=== PATIENT | male | born 1935 | race Caucasian/White ===

== ENCOUNTER 2020-07-20 12:11 | Inpatient (IN) ==
[2020-07-20] MEDS ORDERED: IOPAMIDOL 100 ML BOTTLE IV ONE ×2 (12:12→19:39)
[2020-07-20] MEDS ORDERED: ACETAMINOPHEN 325 MG TABLET PO ONE (12:28)
[2020-07-20] MEDS ORDERED: 0.9 % SODIUM CHLORIDE 1,000 ML IV ONE ×2 (12:28→17:05)
--- NOTE | 2020-07-20 13:02 | Emergency Department Note ---
Weakness HPI General Chief complaint: Weakness Stated complaint: weakness Time Seen by Provider: 07/20/20 12:27 Source: patient Mode of arrival: ambulatory Limitations: no limitations History of Present Illness HPI Narrative: This is an 84-year-old male patient who lives independently at home who was found down on the floor by his family this morning. He says his legs just "gave out." He cannot remember if he hit his head, but he denies loss of consciousness. He is with his granddaughter today who feels he is mildly confused. He has an indwelling Albrecht catheter for urinary stricture. This was placed on 07/07/2020 by his urologist via a urethroscope and he was given a dose of IV ceftriaxone and sent home with Keflex. He has a history of false passage x2 from previous emergency room visits, and thus is a difficult Albrecht placement. The patient is a reasonably good historian and states that he experienced weakness this morning with some nausea and rigors. No vomiting. He had a bowel movement this morning that was well formed and moderately sized. No hematochezia or melena. He denies abdominal pain, denies flank pain. He denies hematuria. He denies shortness of breath or chest pain. Denies cough. Denies new visual changes. He does have a history of brain tumor with surgical removal several years ago and consistently has problems with depth perception. He did suffer a bad fall several months ago that was mechanical in nature after he tripped over a garden hose. He is currently denying focal neurological symptoms. He does endorse feeling somewhat disoriented. Related Data Home Medications Medication Instructions Recorded Confirmed atorvastatin 20 mg tablet 20 mg PO QDAY 09/21/19 07/20/20 carvedilol 3.125 mg tablet 6.25 mg PO QDAY tab 09/21/19 07/20/20 Previous Rx's Medication Instructions Recorded tamsulosin 0.4 mg capsule 0.4 mg PO BIDWMEAL #60 cap 07/05/20 finasteride 5 mg tablet 5 mg PO QDAY #30 tab 07/19/20 Allergies Allergy/AdvReac Type Severity Reaction Status Date / Time No Known Drug Allergies Allergy Verified 07/19/20 13:49 Review of Systems ROS ROS Narrative: Narrative: All systems ED: reviewed and negative except as stated. 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) CAD (coronary artery disease) (Chronic) Dermatophytosis (Chronic) Sensorineural hearing loss (Chronic) Auditory hallucinations (Chronic) Cerebral meningioma (Chronic) Dysplastic nevus of skin (Chronic) Abnormal voice (Chronic) Actinic keratosis (Chronic) 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) Elevated PSA (Chronic) Urinary retention (Chronic) Medical History Abnormal voice (Chronic) Actinic keratosis (Chronic) Anxiety (Chronic) 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) CAD (coronary artery disease) (Chronic) Cerebral meningioma (Chronic) Dermatophytosis (Chronic) Dysplastic nevus of skin (Chronic) Elevated PSA (Chronic) Hyperlipidemia (Chronic) Osteoarthritis of multiple joints (Chronic) Sensorineural hearing loss (Chronic) Sensory disorder of smell (Chronic) Urinary retention (Chronic) Surgical History 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) Family History Father Lung cancer Social History Smoking Status: Former smoker Alcohol Intake Frequency: does not drink Exam Narrative Narrative: Narrative: General Limitations: no limitations General appearance: Present alert, in no apparent distress, nontoxic and thin Head Head: Present atraumatic, normocephalic and normal inspection Eye Eye: Present normal appearance, PERRL and EOMI ENT ENT: Present normal exam and normal oropharynx Neck Neck: Present full ROM Respiratory Respiratory: Present normal lung sounds bilaterally Cardiovascular Cardiovascular: Present regular rate, normal rhythm, tachycardia and normal heart sounds Adbominal Abdominal: Present soft and normal bowel sounds; Absent distention and tenderness : Absent testicular tenderness, urethral discharge, scrotal swelling and epididymal tenderness Extremities Extremities: Present normal inspection and normal capillary refill; Absent pedal edema Neurological Neurological: Present alert, oriented X3, CN II-XII intact and motor sensory deficit Expanded Neurological Speech: Present fluid speech Skin Skin: Present warm (WNL), dry and normal color Course Course Course Narrative: 84-year-old male presents with sepsis. Reevaluation(s) Reevaluation #1: 1. Sepsis: Patient is febrile to 101 F with rigors this morning. He is currently tachycardic. Indwelling Albrecht catheter is suspicious for source. He was previously treated with IV ceftriaxone in the office and then home prescription for Keflex on 07/07/2020 by his urologist after a uteroscope with wire catheter for Albrecht placement. He did see NADIA Hess yesterday, and she recommended that the Albrecht catheter remain in place before trying a voiding trial given his history of false passage and difficult Albrecht placement. Unfortunately, guidance was given to the nurse by this provider to remove the Albrecht catheter for clean void catch. Catheter was removed. -RN was able to replace the catheter but currently no urine output. We will send catheter tip and Albrecht bag urine for culture. -We will need to call the urologist on-call Dr. Martínez, for recommendations and likely replacement of Albrecht catheter -Sepsis work-up including blood cultures x2, procalcitonin, CRP, lactic acid -IV fluid bolus and then continuous thereafter -Start broad-spectrum antibiotics, Zoysn for enterococcus coverage Reevaluation #2: Dr. Martínez in to see the patient with successful placement of a cudet catheter Patient is sent for CT C/A/P to look for source CBC with leukocytosis of 13.3 and procalcitonin 5.[address] read of the C/A/P Reevaluation #3: CT C/A/P without clear source of infection. There is some penile gas noted, but suspect this is secondary to false lumen after traumatic Albrecht catheter placement today. Results were called to urology, Dr. Martínez, wh o recommended we continue to watch for signs of Madhu's gangrene with serial penile exams every 2 hours to evaluate for crepitus and erythema. She also warns that although the urine looks clear and is likely colonized, should he have bacteremia source would likely be from his false lumens secondary to trauma. Vital Signs Vital signs: Vital Signs Temperature 101.5 F H 07/20/20 12:13 Pulse Rate 101 H 07/20/20 12:13 Respiratory Rate 18 07/20/20 12:13 Blood Pressure 95/60 07/20/20 12:13 Pulse Oximetry (%) 95 07/20/20 12:13 Temperature 100.5 F H 07/20/20 13:19 Pulse Rate 92 H 07/20/20 17:20 Respiratory Rate 19 07/20/20 17:20 Blood Pressure 120/59 07/20/20 17:20 Pulse Oximetry (%) 94 07/20/20 17:20 MDM MDM Narrative Medical decision making narrative: 1. Sepsis: Meets criteria for inpatient admission given tachycardia, hypo tension, and fever. Procalcitonin is also significantly elevated with a evolving leukocytosis. Source is probably urosepsis as edmonds scanning has revealed no clear source. -Admit inpatient to hospitalist service -Continue Zosyn -Follow-up blood cultures x2 -Follow-up urinary catheter tip cultures -Serial penile exams every 2 hours to evaluate for crepitus and erythema -Please call urology, Dr. Martínez if penile exam concerning for Madhu's gangrene -COVID screen is still pending 2. Weakness with fall: Patient has history of brain tumor and craniotomy. CT of the head shows no acute intracranial pathology. This is likely secondary to sepsis. Lab Data Result diagrams: 07/20/20 12:56 07/20/20 12:56 Labs: Lab Results 07/20/20 07/20/20 07/20/20 Range/Units 12:56 12:56 12:56 WBC 13.3 H (4.5-11.0) K/mcL RBC 3.80 L (4.50-5.90) M/mcL Hgb 12.2 L (13.5-16.5) g/dL Hct 36.2 L (41.0-55.0) % MCV 95.3 (80.0-100.0) fL MCH 32.1 (26.0-34.0) pg MCHC 33.7 (31.0-36.0) g/dL RDW 12.5 (11.5-14.5) % Plt Count 175 (140-440) K/mcL MPV 11.8 H (7.4-10.4) fL Neut % (Auto) 87.7 H (38.0-78.0) % Lymph % (Auto) 2.9 L (15.0-49.0) % [place] % (Auto) 8.9 (1.0-12.0) % Eos % (Auto) 0.3 (0.0-7.0) % Baso % (Auto) 0.2 (0.0-2.0) % Lymph # (Auto) 0.39 L (1.50-4.80) K/mcL [place] # (Auto) 1.18 H (0.10-0.90) K/mcL Eos # (Auto) 0.04 (0.00-0.70) K/mcL Baso # (Auto) 0.02 (0.00-0.20) K/mcL VBG Lactic Acid (0.5-2.0) mmol/L Sodium 137 (133-145) mmol/L Potassium 3.6 (3.3-5.1) mmol/L Chloride 103 (96-108) mmol/L Carbon Dioxide 19 L (22-30) mmol/L Anion Gap 15.0 (8.0-16.0) BUN 22 (8-23) mg/dL Creatinine 1.1 (0.7-1.2) mg/dL POC Creatinine (0.6-1.2) mg/dL GFR Calculation 60 Glucose 84 (70-105) mg/dL Calcium 9.2 (8.6-10.4) mg/dL Total Bilirubin 0.7 (0.1-1.0) mg/dL AST 19 (<40) U/L ALT 11 (<40) U/L Alkaline Phosphatase 62 (39-117) U/L Total Creatine Kinase (24-195) U/L C-Reactive Protein 0.50 (0.03-0.80) mg/dL Total Protein 6.9 (5.9-8.4) gm/dL Albumin 3.6 (3.2-5.2) gm/dL Globulin 3.3 (2.2-3.7) gm/dL Albumin/Globulin Ratio 1.1 (1.0-2.3) Procalcitonin 5.35 H (<0.10) ng/mL Abs Neutrophil Control 11.66 H (1.80-8.00) K/mcL 07/20/20 07/20/20 07/20/20 Range/Units 12:56 12:56 14:30 WBC (4.5-11.0) K/mcL RBC (4.50-5.90) M/mcL Hgb (13.5-16.5) g/dL Hct (41.0-55.0) % MCV (80.0-100.0) fL MCH (26.0-34.0) pg MCHC (31.0-36.0) g/dL RDW (11.5-14.5) % Plt Count (140-440) K/mcL MPV (7.4-10.4) fL Neut % (Auto) (38.0-78.0) % Lymph % (Auto) (15.0-49.0) % [place] % (Auto) (1.0-12.0) % Eos % (Auto) (0.0-7.0) % Baso % (Auto) (0.0-2.0) % Lymph # (Auto) (1.50-4.80) K/mcL [place] # (Auto) (0.10-0.90) K/mcL Eos # (Auto) (0.00-0.70) K/mcL Baso # (Auto) (0.00-0.20) K/mcL VBG Lactic Acid 1.2 (0.5-2.0) mmol/L Sodium (133-145) mmol/L Potassium (3.3-5.1) mmol/L Chloride (96-108) mmol/L Carbon Dioxide (22-30) mmol/L Anion Gap (8.0-16.0) BUN (8-23) mg/dL Creatinine (0.7-1.2) mg/dL POC Creatinine 1.1 (0.6-1.2) mg/dL GFR Calculation Glucose (70-105) mg/dL Calcium (8.6-10.4) mg/dL Total Bilirubin (0.1-1.0) mg/dL AST (<40) U/L ALT (<40) U/L Alkaline Phosphatase (39-117) U/L Total Creatine Kinase 170 (24-195) U/L C-Reactive Protein (0.03-0.80) mg/dL Total Protein (5.9-8.4) gm/dL Albumin (3.2-5.2) gm/dL Globulin (2.2-3.7) gm/dL Albumin/Globulin Ratio (1.0-2.3) Procalcitonin (<0.10) ng/mL Abs Neutrophil Control (1.80-8.00) K/mcL Discharge Plan Patient/Caregiver Discharge Instructions Pt seen by AN/SQQ [id number] SONAR SYSTEM JOURNEYMAN/PA only: Yes Clinical Impression: Sepsis associated hypotension Patient Disposition: Xfer As Inpt ([facility]) Follow up with: Cristino Leal ARNP [Primary Care Provider] - Prescriptions: No Action carvedilol 3.125 mg tablet 6.25 mg PO QDAY RF: 0 atorvastatin 20 mg tablet 20 mg PO QDAY RF: 0 tamsulosin 0.4 mg capsule 0.4 mg PO BIDWMEAL Qty: 60 RF: 6 finasteride 5 mg tablet 5 mg PO QDAY Qty: 30 RF: 3
--- NOTE | 2020-07-20 13:56 | Cat Scan Report ---
History: Fell with increased confusion and weakness, prior resection of a brain tumor TECHNIQUE: The brain was imaged without contrast at 2.5 mm intervals. Sagittal and coronal reformats were created. The radiation exposure was limited using dose reduction technology. FINDINGS: There is a craniotomy defect in the left occipital bone. There is mesh at the operative site. Beneath the calvarial defect there is a zone of encephalomalacia along the lateral aspect of the left cerebellum. No skull fracture is present. There is no intracranial hemorrhage, cerebral edema or evidence of an acute infarct. Age-related degenerative changes are present with generalized cerebral atrophy and mild dilatation of the lateral and third ventricles. No abnormal extra-axial fluid collection is present. There is moderate amount calcified plaque in the cavernous portions of both internal carotids and moderate involvement in the right vertebral artery. No prior study is available for comparison. IMPRESSION: Postsurgical defect in the left cerebellar hemisphere No skull fracture or evidence of acute brain injury Vonda Delgadillo was called with the results Interpreted and Authenticated by: Cristino Calderon 07/20/20
[2020-07-20] MEDS ORDERED: PIPERACILLIN SODIUM/TAZOBACTAM 3.375 GM in DEXTROSE 5% IN WATER 50 ML IV SCH ×2 (14:00→18:45)
--- NOTE | 2020-07-20 14:04 | XRay Report ---
HISTORY: Sepsis FINDINGS: Small band of scar or discoid atelectasis is present at the left costophrenic sulcus. The lungs are otherwise clear and well expanded without evidence of pneumonia. There is no pleural effusion or adenopathy. The heart size is normal. There has been prior coronary bypass surgery. A moderate wedge compression fracture is present in the midthoracic spine. This appears old. IMPRESSION: No acute abnormality Interpreted and Authenticated by: Cristino Calderon 07/20/20
[2020-07-20 14:31] LABS: ALT/SGPT 11 U/L (<40); AST/SGOT 19 U/L (<40); Albumin 3.6 gm/dL (3.2-5.2); Albumin/Globulin Ratio 1.1 (1.0-2.3); Alkaline Phosphatase 62 U/L (39-117); Bilirubin,Total 0.7 mg/dL (0.1-1.0); Blood Urea Nitrogen 22 mg/dL (8-23); Calcium 9.2 mg/dL (8.6-10.4); Carbon Dioxide 19 mmol/L (22-30); Chloride 103 mmol/L (96-108); Globulin 3.3 gm/dL (2.2-3.7); Glomerular Filtration Rate 60; Glucose 84 mg/dL (70-105)
[2020-07-20 14:32] LABS: Creatine Kinase 170 U/L (24-195)
[2020-07-20 14:40] LABS: POC Creatinine 1.1 mg/dL (0.6-1.2)
[2020-07-20 14:43] LABS: Basophils # (Auto) 0.02 K/mcL (0.00-0.20); Basophils % (Auto) 0.2 % (0.0-2.0); Eosinophils # (Auto) 0.04 K/mcL (0.00-0.70); Eosinophils % (Auto) 0.3 % (0.0-7.0); Hematocrit 36.2 % (41.0-55.0); Hemoglobin 12.2 g/dL (13.5-16.5); Lymphocytes # (Auto) 0.39 K/mcL (1.50-4.80); Lymphocytes % (Auto) 2.9 % (15.0-49.0); Mean Cell Volume 95.3 fL (80.0-100.0); Mean Corpuscular HGB Conc 33.7 g/dL (31.0-36.0); Mean Platelet Volume 11.8 fL (7.4-10.4); Monocytes # (Auto) 1.18 K/mcL (0.10-0.90); Monocytes % (Auto) 8.9 % (1.0-12.0); Neutrophils % (Auto) 87.7 % (38.0-78.0); Platelet Count 175 K/mcL (140-440); Red Cell Distribution Width 12.5 % (11.5-14.5); WBC 13.3 K/mcL (4.5-11.0)
--- NOTE | 2020-07-20 16:31 | Cat Scan Report ---
History: Sepsis, cellulitis in the legs TECHNIQUE: Following injection of intravenous nonionic contrast the patient was scanned from the thoracic inlet to the tibial plateaus. Sagittal and coronal reformats were created of the chest abdomen pelvis and thighs. The radiation exposure was limited using dose reduction technology. FINDINGS: CHEST: There are several linear bands of scar or discoid atelectasis in the left lower lobe. There is no evidence of pneumonia or pulmonary mass. No pleural effusion or enlarged lymph nodes are present. There are postoperative changes following prior sternotomy and coronary bypass surgery. Heart size is normal. Large amount calcified plaque is present in the left main and left anterior descending coronary. No pleural or pericardial effusion present. Abdomen and pelvis: The liver and spleen are normal in size and homogeneous. The gallbladder and bile ducts are normal. There is no mass or inflammation the pancreas. The adrenals and kidneys are normal. There is no evidence of kidney stone hydronephrosis or inflammation in or around either kidney. The ureters are decompressed. There are several noninflamed diverticula in the distal descending and sigmoid colon. There is no evidence of acute diverticulitis. The appendix is noninflamed. Small intestine is nondilated. Stomach is decompressed. No abscess, mass, ascites or adenopathy are present within the abdomen or pelvis. Prostate is markedly enlarged and lifts the bladder from the floor the pelvis. The bladder is decompressed by Albrecht catheter. There is gas in the bladder which is probably related to the insertion of the Albrecht and less likely due to infection. Seminal vesicles are normal in size. Severe atherosclerotic disease is present throughout the aorta and iliac arteries. There is moderate stenosis at the origin of the celiac artery. Superior mesenteric artery is normal. Moderate stenoses are present at the origins of both renal arteries. Scattered plaques along all the internal and external carotid arteries without hemodynamically significant stenosis. Thighs:: There is a moderate amount of plaque in the common femoral arteries bilaterally and multiple scattered plaques are present in the superficial femoral artery and profunda down through the level of the popliteal arteries. These are not causing hemodynamically significant stenoses. There is no evidence of an abscess or edema in either thigh. No abnormal fluid collection is present. The thigh and pelvic muscles appear normal and symmetric. IMPRESSION: No evidence of abscess. The source of sepsis is not identified. Diverticulosis but without acute diverticulitis. Enlarged prostate which is probably due to benign prostatic hypertrophy. Underlying tumor cannot be excluded. Scar versus discoid atelectasis in the left lower lobe Advanced atherosclerotic disease in the chest abdomen pelvis Vonda Delgadillo was called with the results Interpreted and Authenticated by: Cristino Calderon 07/20/20
[2020-07-20] MEDS ORDERED: TAMSULOSIN 0.4 MG CAPSULE PO SCH (17:30)
[2020-07-20] MEDS ORDERED: 0.9 % SODIUM CHLORIDE 1,000 ML IV SCH (18:45)
[2020-07-20] MEDS ORDERED: ONDANSETRON 4 MG/2 ML VIAL IV PRN ×2 (18:45→19:39)
[2020-07-20] MEDS ORDERED: oxyCODONE/APAP 5/325MG TABLET PO PRN (18:45)
[2020-07-20] MEDS ORDERED: SENNOSIDES 1 TABLET PO PRN (18:45)
[2020-07-20] MEDS ORDERED: morphine 2 MG/ML VIAL IV PRN ×2 (18:45→19:39)
--- NOTE | 2020-07-20 19:04 | Internal Med History&Physical ---
HPI History of Present Illness Patient information: Note initiated : 07/20/20 at 7:00 pm Service Date, if different from initiated Date: [] Patient: Gregg Davis a 84 y/o M admitted on for weakness. Chief Complaint: [] History of present illness: Mr. Davis is a 84 year old M with a past medical history of BPH, CAD, and urethral stricture who was brought to the ER due to fall at home. This morning patient was found to be on the ground by family. As per patient, his legs just "gave out.". He did not lose consciousness or hit his head. He also has nausea and chills today. His grandson found him to have mild confusion today. He has a urethral stricture, for which Moreno catheter was placed on 07/07/2020 by his urologist via a urethroscope. He was discharged to home with oral Keflex after 1 dose of IV ceftriaxone was given. Yesterday he went to see NADIA Hess who removed his Moreno catheter. In the ER, Moreno catheter was not able to be inserted. Urologist Dr. Martínez successfully placed a moreno cath. CT head was negative for acute change. CT chest abdomen pelvis and upper thighs no significant pathology. But it did show There was some penile gas noted, but suspect this is secondary to false lumen after traumatic Moreno catheter placement today. When I saw this patient in the ER, other than the symptoms mentioned above, he denied headache, dizziness, chest pain, abdominal pain, shortness of breath, or dysuria. 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) Elevated PSA (Chronic) Urinary retention (Chronic) Medical History Abnormal voice (Chronic) Actinic keratosis (Chronic) Anxiety (Chronic) 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) CAD (coronary artery disease) (Chronic) Cerebral meningioma (Chronic) Dermatophytosis (Chronic) Dysplastic nevus of skin (Chronic) Elevated PSA (Chronic) Hyperlipidemia (Chronic) Osteoarthritis of multiple joints (Chronic) Sensorineural hearing loss (Chronic) Sensory disorder of smell (Chronic) Urinary retention (Chronic) Surgical History 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) Family History Father Lung cancer Social History smoking status: Former smoker alcohol intake frequency: does not drink MEDS/ALLERGIES Home Medications and Allergies Home Medications Medication Instructions Recorded Confirmed Type atorvastatin 20 mg tablet 20 mg PO QDAY 09/21/19 07/20/20 History carvedilol 3.125 mg tablet 6.25 mg PO QDAY tab 09/21/19 07/20/20 History tamsulosin 0.4 mg capsule 0.4 mg PO BIDWMEAL #60 cap 07/05/20 07/20/20 Rx finasteride 5 mg tablet 5 mg PO QDAY #30 tab 07/19/20 07/20/20 Rx Allergies Allergy/AdvReac Type Severity Reaction Status Date / Time No Known Drug Allergies Allergy Verified 07/19/20 13:49 EXAM Constitutional Vitals: Temp Pulse Resp BP Pulse Ox 100.5 F H 85 23 H 111/79 96 07/20/20 13:19 07/20/20 18:28 07/20/20 17:45 07/20/20 18:28 07/20/20 18:28 Additional findings Additional findings: General - No acute distress Eyes - PERRLA, EOM intact ENT no rhinorrhea, no noticeable or palpable swelling, no redness or rash around throat or on face Neck supple, no JVD, no thyromegaly Respiratory: Lungs - diminshed BS, no use of accessary muscles. Cardiovascular - RRR no m/r/g, GI - Normal bowel sounds, no distended, soft. Extremeties - No edema, cyanosis or clubbing. No CVA tenderness. Hemo/lymphatic/immune no lymphadenopathy Neurological Alert and oriented x 3, no focal neurological deficits. Psychiatry flat affect DATA Data Completed and Pending Labs: Labs from last 24 hours 07/20/20 07/20/20 07/20/20 14:30 13:50 12:56 WBC RBC Hgb Hct MCV MCH MCHC RDW Plt Count MPV Neut % (Auto) Lymph % (Auto) Barron % (Auto) Eos % (Auto) Baso % (Auto) Lymph # (Auto) Barron # (Auto) Eos # (Auto) Baso # (Auto) VBG Lactic Acid Sodium Potassium Chloride Carbon Dioxide Anion Gap BUN Creatinine POC Creatinine 1.1 GFR Calculation Glucose Calcium Total Bilirubin AST ALT Alkaline Phosphatase Total Creatine Kinase 170 C-Reactive Protein Total Protein Albumin Globulin Albumin/Globulin Ratio Procalcitonin Urine Color Pending Urine Appearance Pending Urine pH Pending Ur Specific [place] Pending Urine Protein Pending Urine Glucose (UA) Pending Urine Ketones Pending Urine Occult Blood Pending Urine Nitrate Pending Urine Bilirubin Pending Urine Urobilinogen Pending Ur Leukocyte Esterase Pending Abs Neutrophil Control 07/20/20 07/20/20 07/20/20 12:56 12:56 12:56 WBC RBC Hgb Hct MCV MCH MCHC RDW Plt Count MPV Neut % (Auto) Lymph % (Auto) Barron % (Auto) Eos % (Auto) Baso % (Auto) Lymph # (Auto) Barron # (Auto) Eos # (Auto) Baso # (Auto) VBG Lactic Acid 1.2 Sodium 137 Potassium 3.6 Chloride 103 Carbon Dioxide 19 L Anion Gap 15.0 BUN 22 Creatinine 1.1 POC Creatinine GFR Calculation 60 Glucose 84 Calcium 9.2 Total Bilirubin 0.7 AST 19 ALT 11 Alkaline Phosphatase 62 Total Creatine Kinase C-Reactive Protein 0.50 Total Protein 6.9 Albumin 3.6 Globulin 3.3 Albumin/Globulin Ratio 1.1 Procalcitonin 5.35 H Urine Color Urine Appearance Urine pH Ur Specific [place] Urine Protein Urine Glucose (UA) Urine Ketones Urine Occult Blood Urine Nitrate Urine Bilirubin Urine Urobilinogen Ur Leukocyte Esterase Abs Neutrophil Control 07/20/20 12:56 WBC 13.3 H RBC 3.80 L Hgb 12.2 L Hct 36.2 L MCV 95.3 MCH 32.1 MCHC 33.7 RDW 12.5 Plt Count 175 MPV 11.8 H Neut % (Auto) 87.7 H Lymph % (Auto) 2.9 L Barron % (Auto) 8.9 Eos % (Auto) 0.3 Baso % (Auto) 0.2 Lymph # (Auto) 0.39 L Barron # (Auto) 1.18 H Eos # (Auto) 0.04 Baso # (Auto) 0.02 VBG Lactic Acid Sodium Potassium Chloride Carbon Dioxide Anion Gap BUN Creatinine POC Creatinine GFR Calculation Glucose Calcium Total Bilirubin AST ALT Alkaline Phosphatase Total Creatine Kinase C-Reactive Protein Total Protein Albumin Globulin Albumin/Globulin Ratio Procalcitonin Urine Color Urine Appearance Urine pH Ur Specific [place] Urine Protein Urine Glucose (UA) Urine Ketones Urine Occult Blood Urine Nitrate Urine Bilirubin Urine Urobilinogen Ur Leukocyte Esterase Abs Neutrophil Control 11.66 H A/P Narrative A/P Narrative: 1. AMS Etiology unknown. Could be due to sepsis. CT of the head negative for acute change Monitor 2. Sepsis, source of infection unknown, could be due to bacteremia 3. Bacteremia? 2L normal saline was given in the ER continue IV fluid Procalcitonin 5.35, lactic acid 1.2 COVID-19 screen negative He was suspected to have bacteremia from false passage Blood culture Urine culture Zosyn 4. Urinary retention 5. Hx of urethral stricture 6. Uretharal false passage 7. BPH CT chest, abd, pelvis, and thigh no significant pathology. Managed by urologist Dr. Martínez. With a really appreciate it. Moreno catheter was replaced by Dr. Martínez in the ER Hx of false passage x [address] Martínez, -moreno catheter to remain in place for 3 weeks -to see Dr. Martínez in three weeks for cystoscopy and trial of void in clinic -do not remove catheter without discussion with urology 8. CAD, s/p CABG Continue Lipitor 9. Madhu's gangrene, penis? CT showed there was some penile gas noted, but suspect this is secondary to false lumen after traumatic Moreno catheter placement today. Continue to watch for signs of Madhu's gangrene with serial penile exams every 2 hours to evaluate for crepitus and erythema. 10. Mechanical ground level fall CK PT/OT/CM 11. DVT prophylaxis: Lovenox 12. 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
[2020-07-20] MEDS: 0.9 % SODIUM CHLORIDE 1,000 ML IV SCH (20:15)
[2020-07-20] MEDS: 0.9 % SODIUM CHLORIDE 10 ML SYRINGE IV SCH (20:20)
[2020-07-20 20:53] LABS: Phosphorous 3.2 mg/dL (2.5-4.5)
[2020-07-20 20:54] LABS: Creatine Kinase 125 U/L (24-195)
[2020-07-20] MEDS: TAMSULOSIN 0.4 MG CAPSULE PO SCH (21:00)
[2020-07-20] MEDS ORDERED: DOCUSATE SODIUM 100 MG CAPSULE PO SCH (21:00)
[2020-07-20] MEDS: DOCUSATE SODIUM 100 MG CAPSULE PO SCH (21:01)
[2020-07-20] MEDS ORDERED: 0.9 % SODIUM CHLORIDE 10 ML SYRINGE IV SCH (22:00)
[2020-07-21] MEDS: PIPERACILLIN SODIUM/TAZOBACTAM 3.375 GM in DEXTROSE 5% IN WATER 50 ML IV SCH ×4 (00:11→17:06)
[2020-07-21] MEDS: 0.9 % SODIUM CHLORIDE 10 ML SYRINGE IV SCH ×3 (06:28→23:56)
[2020-07-21 06:39] LABS: Basophils # (Auto) 0.04 K/mcL (0.00-0.20); Basophils % (Auto) 0.3 % (0.0-2.0); Eosinophils # (Auto) 0.01 K/mcL (0.00-0.70); Eosinophils % (Auto) 0.1 % (0.0-7.0); Hematocrit 32.6 % (41.0-55.0); Hemoglobin 10.8 g/dL (13.5-16.5); Lymphocytes # (Auto) 1.03 K/mcL (1.50-4.80); Lymphocytes % (Auto) 6.8 % (15.0-49.0); Mean Cell Volume 95.6 fL (80.0-100.0); Mean Corpuscular HGB Conc 33.1 g/dL (31.0-36.0); Mean Platelet Volume 11.7 fL (7.4-10.4); Monocytes # (Auto) 1.24 K/mcL (0.10-0.90); Monocytes % (Auto) 8.1 % (1.0-12.0); Neutrophils % (Auto) 84.7 % (38.0-78.0); Platelet Count 141 K/mcL (140-440); RBC 3.41 M/mcL (4.50-5.90); Red Cell Distribution Width 12.9 % (11.5-14.5); WBC 15.2 K/mcL (4.5-11.0)
[2020-07-21] MEDS ORDERED: NOREPINEPHRINE BITARTRATE 8 MG in 0.9 % SODIUM CHLORIDE 242 ML IV SCH (07:30)
[2020-07-21] MEDS: TAMSULOSIN 0.4 MG CAPSULE PO SCH ×2 (08:10→17:11)
[2020-07-21] MEDS: 0.9 % SODIUM CHLORIDE 250 ML IV SCH ×2 (08:42→23:06)
[2020-07-21] MEDS ORDERED: FINASTERIDE 5 MG TABLET PO SCH (09:00)
[2020-07-21] MEDS ORDERED: ATORVASTATIN 20 MG TABLET PO SCH (09:00)
[2020-07-21] MEDS ORDERED: ENOXAPARIN 40 MG/0.4 ML SYRINGE SQ SCH (09:00)
[2020-07-21] MEDS: FINASTERIDE 5 MG TABLET PO SCH (09:12)
[2020-07-21] MEDS: DOCUSATE SODIUM 100 MG CAPSULE PO SCH ×2 (09:13→21:02)
[2020-07-21] MEDS: ENOXAPARIN 40 MG/0.4 ML SYRINGE SQ SCH (09:13)
[2020-07-21] MEDS: 0.9 % SODIUM CHLORIDE 1,000 ML IV SCH ×2 (09:13→22:40)
[2020-07-21] MEDS: ATORVASTATIN 20 MG TABLET PO SCH (09:13)
[2020-07-21] MEDS ORDERED: NOREPINEPHRINE BITARTRATE 8 MG in 0.9 % SODIUM CHLORIDE 242 ML IV PRN (09:15)
[2020-07-21 11:19] LABS: ALT/SGPT 10 U/L (<40); AST/SGOT 17 U/L (<40); Albumin 3.1 gm/dL (3.2-5.2); Albumin/Globulin Ratio 1.1 (1.0-2.3); Alkaline Phosphatase 54 U/L (39-117); Bilirubin,Total 0.5 mg/dL (0.1-1.0); Blood Urea Nitrogen 23 mg/dL (8-23); Calcium 8.9 mg/dL (8.6-10.4); Carbon Dioxide 19 mmol/L (22-30); Chloride 110 mmol/L (96-108); Globulin 2.7 gm/dL (2.2-3.7); Glomerular Filtration Rate 60; Glucose 84 mg/dL (70-105)
[2020-07-21] MEDS ORDERED: oxyCODONE/APAP 5/325MG TABLET PO PRN (21:28)
--- NOTE | 2020-07-21 21:53 | Internal Med Progress Note ---
SUBJECTIVE Subjective Patient information: Note initiated : 07/21/20 at 9:50 pm Service Date, if different from initiated Date: [] Patient: Gregg Davis a 84 y/o M admitted on 07/20/20 for weakness. Chief Complaint: [] Mr. Davis is a 84 year old M with a past medical history of BPH, CAD, and ureth ral stricture who was brought to the ER due to fall at home. This morning patient was found to be on the ground by family. As per patient, his legs just "gave out.". He did not lose consciousness or hit his head. He also has nausea and chills today. His grandson found him to have mild confusion today. He has a urethral stricture, for which Moreno catheter was placed on 07/07/2020 by his urologist via a urethroscope. He was discharged to home with oral Keflex after 1 dose of IV ceftriaxone was given. Yesterday he went to see NADIA Hess who removed his Moreno catheter. In the ER, Moreno catheter was not able to be inserted. Urologist Dr. Martínez successfully placed a moreno cath. CT head was negative for acute change. CT chest abdomen pelvis and upper thighs no significant pathology. But it did show There was some penile gas noted, but suspect this is secondary to false lumen after traumatic Moreno catheter placement today. When I saw this patient in the ER, other than the symptoms mentioned above, he denied headache, dizziness, chest pain, abdominal pain, shortness of breath, or dysuria. 09/20 Patient feels much better. Mental status improving -answer questions appro priately. Patient has mild fever this evening White blood cells of 15.2 Hemoglobin 10.8 COVID-19 negative Urine culture pending Review of Systems All systems: reviewed and no additional remarkable complaints except as stated Constitutional Vitals: Vital Signs Temp Pulse Resp BP Pulse Ox 101.4 F H 93 H 20 129/77 93 07/21/20 21:03 07/21/20 16:00 07/21/20 16:00 07/21/20 16:00 07/21/20 16:00 Period Temp Pulse Resp BP Sys/Hernandez Pulse Ox Last 24 Hr 98.2 F-101.4 F 75-93 9-20 87-129/52-77 93-99 Intake and Output 1007/21/20 07/21/20 05:59 13:59 21:59 Intake Total 50 1673 Output Total 650 200 750 Balance -600 1473 -750 Weight 81.828 kg Patient Weight 07/22/20 05:59 Weight 81.828 kg Intake & Output: Intake & Output 07/21/20 07/21/20 07/21/20 05:59 13:59 21:59 Intake Total 50 1673 Output Total 650 200 750 Balance -600 1473 -750 Weight 81.828 kg Intake: IV 50 1073 Sodium Chloride 0.9% 1,000 ml @ 973 75 mls/hr IV .[id number] Rx#: [id number] Zosyn 3.375 gm In Dextrose 5% 50 100 in Water 50 ml @ 100 mls/hr IV Q6H [facility] Rx#:[id number] Oral 600 Output: Urine Catheter Amount 650 200 750 Other: Meal Breakfast Percent of Meal Consumed 100% Feeding Ability Independent Urine Appearance Cloudy Cloudy Cloudy Urine Color Dark Yellow Straw Dark Yellow Urine Odor Normal Normal Stool Size Moderate Stool Color Brown Pale Stool Consistency Soft Formed Additional findings Additional findings: General - No acute distress Eyes - PERRLA, EOM intact ENT no rhinorrhea, no noticeable or palpable swelling, no redness or rash around throat or on face Neck supple, no JVD, no thyromegaly Respiratory: Lungs - diminshed BS, no use of accessary muscles. Cardiovascular - RRR no m/r/g, GI - Normal bowel sounds, no distended, soft. Extremeties - No edema, cyanosis or clubbing. No CVA tenderness. Penis no erythema, edema or tenderness. Hemo/lymphatic/immune no lymphadenopathy Neurological Alert and oriented x 3, no focal neurological deficits. Psychiatry flat affect OBJ DATA Labs CBC & Chem 7: 07/21/20 04:56 07/21/20 04:56 Labs: Abnormal Lab Results 07/21/20 07/21/20 07/20/20 04:56 04:56 19:27 WBC 15.2 H RBC 3.41 L Hgb 10.8 L Hct 32.6 L MPV 11.7 H Neut % (Auto) 84.7 H Lymph % (Auto) 6.8 L Lymph # (Auto) 1.03 L Kent # (Auto) 1.24 H Chloride 110 H Carbon Dioxide 19 L NT-Pro-B Natriuret Pep 1229.0 H Total Protein 5.8 L Albumin 3.1 L Procalcitonin Abs Neutrophil Control 12.91 H 07/20/20 07/20/20 07/20/20 12:56 12:56 12:56 WBC 13.3 H RBC 3.80 L Hgb 12.2 L Hct 36.2 L MPV 11.8 H Neut % (Auto) 87.7 H Lymph % (Auto) 2.9 L Lymph # (Auto) 0.39 L Kent # (Auto) 1.18 H Chloride Carbon Dioxide 19 L NT-Pro-B Natriuret Pep Total Protein Albumin Procalcitonin 5.35 H Abs Neutrophil Control 11.66 H Meds: Medications Acetaminophen (Tylenol) 500 mg PO Q6HP PRN; Protocol PRN Reason: Fever Atorvastatin Calcium (Lipitor) 20 mg PO QDAY [facility] Last Admin: 07/21/20 09:13 Dose: 20 mg Documented by: Docusate Sodium (Colace) 100 mg PO BID [facility] Last Admin: 07/21/20 21:02 Dose: 100 mg Documented by: Enoxaparin Sodium (Lovenox) 40 mg SQ DAILY [facility] Last Admin: 07/21/20 09:13 Dose: 40 mg Documented by: Finasteride (Proscar) 5 mg PO QDAY [facility] Last Admin: 07/21/20 09:12 Dose: 5 mg Documented by: Sodium Chloride (Sodium Chloride 0.9%) 1,000 mls @ 75 mls/hr IV .[id number] [facility] Last Admin: 07/21/20 09:13 Dose: 75 mls/hr Documented by: Piperacillin Sod/Tazobactam (Sod 3.375 gm/ Dextrose) 50 mls @ 100 mls/hr IV Q6H [facility]; Protocol Last Admin: 07/21/20 17:06 Dose: 100 mls/hr Documented by: Sodium Chloride (Sodium Chloride 0.9%) 250 mls @ 20 mls/hr IV .[id number] [facility] Last Admin: 07/21/20 08:42 Dose: Not Given Documented by: Norepinephrine Bitartrate 8 mg (/ Sodium Chloride) 250 mls @ 18.75 mls/hr IV Q14H PRN; Protocol PRN Reason: TITRATE TO KEEP MAP > 65 Morphine Sulfate (Morphine) 2 mg IV Q6HP PRN PRN Reason: Chest Pain Ondansetron HCl (Zofran) 4 mg IV Q4HP PRN; Protocol PRN Reason: Nausea And Vomiting Oxycodone/Acetaminophen (Percocet 5-325 Mg) 1 tab PO Q6H PRN; Protocol PRN Reason: Per Pain Protocol Sodium Chloride (Saline Flush) 10 ml IV Q8 [facility] Last Admin: 07/21/20 12:59 Dose: Not Given Documented by: Tamsulosin HCl (Flomax) 0.4 mg PO BIDCC [facility] Last Admin: 07/21/20 17:11 Dose: 0.4 mg Documented by: A/P Narrative A/P Narrative: 1. AMS improving/almost resolved Etiology unknown. Could be due to sepsis. CT of the head negative for acute change Monitor 2. Sepsis, source of infection unknown, could be due to bacteremia 3. Bacteremia? 2L normal saline was given in the ER continue IV fluid Procalcitonin 5.35, lactic acid 1.2 COVID-19 screen negative He was suspected to have bacteremia from false passage Blood culture pending Urine culture pending Zosyn 4. Urinary retention 5. Hx of urethral stricture 6. Uretharal false passage 7. BPH CT chest, abd, pelvis, and thigh no significant pathology. Managed by urologist Dr. Martínez. With a really appreciate it. Moreno catheter was replaced by Dr. Martínez in the ER Hx of false passage x [address] Martínez, -moreno catheter to remain in place for 3 weeks -to see Dr. Martínez in three weeks for cystoscopy and trial of void in clinic -do not remove catheter without discussion with urology 8. CAD, s/p CABG Continue Lipitor 9. Madhu's gangrene, penis? CT showed there was some penile gas noted, but suspect this is secondary to false lumen after traumatic Moreno catheter placement today. Continue to watch for signs of Madhu's gangrene with serial penile exams e very 2 hours to evaluate for crepitus and erythema. 10. Mechanical ground level fall CK - 125 PT/OT/CM 11. DVT prophylaxis: Lovenox 12. 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
[2020-07-21] MEDS: ACETAMINOPHEN 500 MG TABLET PO PRN (21:54)
[2020-07-22] MEDS: PIPERACILLIN SODIUM/TAZOBACTAM 3.375 GM in DEXTROSE 5% IN WATER 50 ML IV SCH ×5 (00:16→17:24)
[2020-07-22] MEDS: 0.9 % SODIUM CHLORIDE 250 ML IV SCH (06:38)
[2020-07-22 06:39] LABS: Basophils # (Auto) 0.03 K/mcL (0.00-0.20); Basophils % (Auto) 0.3 % (0.0-2.0); Eosinophils # (Auto) 0.01 K/mcL (0.00-0.70); Eosinophils % (Auto) 0.1 % (0.0-7.0); Hematocrit 33.7 % (41.0-55.0); Hemoglobin 11.2 g/dL (13.5-16.5); Lymphocytes # (Auto) 0.45 K/mcL (1.50-4.80); Lymphocytes % (Auto) 4.6 % (15.0-49.0); Mean Cell Volume 95.5 fL (80.0-100.0); Mean Corpuscular HGB Conc 33.2 g/dL (31.0-36.0); Mean Platelet Volume 11.5 fL (7.4-10.4); Monocytes # (Auto) 0.64 K/mcL (0.10-0.90); Monocytes % (Auto) 6.5 % (1.0-12.0); Neutrophils % (Auto) 88.5 % (38.0-78.0); Platelet Count 118 K/mcL (140-440); RBC 3.53 M/mcL (4.50-5.90); Red Cell Distribution Width 12.9 % (11.5-14.5); WBC 9.8 K/mcL (4.5-11.0)
[2020-07-22] MEDS: 0.9 % SODIUM CHLORIDE 10 ML SYRINGE IV SCH ×3 (06:44→22:57)
[2020-07-22] MEDS: TAMSULOSIN 0.4 MG CAPSULE PO SCH ×2 (07:28→17:25)
[2020-07-22 08:22] LABS: ALT/SGPT 9 U/L (<40); AST/SGOT 16 U/L (<40); Albumin/Globulin Ratio 1.1 (1.0-2.3); Alkaline Phosphatase 57 U/L (39-117); Bilirubin,Total 0.5 mg/dL (0.1-1.0); Blood Urea Nitrogen 15 mg/dL (8-23); Calcium 8.6 mg/dL (8.6-10.4); Carbon Dioxide 19 mmol/L (22-30); Chloride 110 mmol/L (96-108); Globulin 2.8 gm/dL (2.2-3.7); Glomerular Filtration Rate 60; Glucose 90 mg/dL (70-105)
[2020-07-22] MEDS: FINASTERIDE 5 MG TABLET PO SCH (09:07)
[2020-07-22] MEDS: DOCUSATE SODIUM 100 MG CAPSULE PO SCH ×2 (09:07→20:45)
[2020-07-22] MEDS: ENOXAPARIN 40 MG/0.4 ML SYRINGE SQ SCH (09:07)
[2020-07-22] MEDS: ATORVASTATIN 20 MG TABLET PO SCH (09:08)
[2020-07-22] MEDS: ACETAMINOPHEN 500 MG TABLET PO PRN (10:31)
--- NOTE | 2020-07-22 10:38 | Internal Med Progress Note ---
SUBJECTIVE Subjective Patient information: Note initiated : 07/22/20 at 10:34 am Service Date, if different from initiated Date: [] Patient: Gregg Davis a 84 y/o M admitted on 07/20/20 for weakness. Chief Complaint: [] Mr. Davis is a 84 year old M with a past medical history of BPH, CAD, and ure thral stricture who was brought to the ER due to fall at home. This morning patient was found to be on the ground by family. As per patient, his legs just "gave out.". He did not lose consciousness or hit his head. He also has nausea and chills today. His grandson found him to have mild confusion today. He has a urethral stricture, for which Moreno catheter was placed on 07/07/2020 by his urologist via a urethroscope. He was discharged to home with oral Keflex after 1 dose of IV ceftriaxone was given. Yesterday he went to see NADIA Hess who removed his Moreno catheter. In the ER, Moreno catheter was not able to be inserted. Urologist Dr. Martínez successfully placed a moreno cath. CT head was negative for acute change. CT chest abdomen pelvis and upper thighs no significant pathology. But it did show There was some penile gas noted, but suspect this is secondary to false lumen after traumatic Moreno catheter placement today. When I saw this patient in the ER, other than the symptoms mentioned above, he denied headache, dizziness, chest pain, abdominal pain, shortness of breath, or dysuria. 09/20 Patient feels much better. Mental status improving -answer questions melissa ropriately. Patient has mild fever this evening White blood cells of 15.2 Hemoglobin 10.8 COVID-19 negative Urine culture pending 07/22 Pt is more lethargic today. Does not follow commends. Pt still has fever. Urine culture showed GNB. Sensitivity pending Accucheck blood glucose 100 CT of head -no acute change ABG, Lactic acid, procalcitonin, blood culture CT abd/pelvis to r/o intraabd/pel infection/abscess -no abscess pulse ox oxygen ABG showed 7.53/24/58/92.8/20.1. Oxygen therapy was started. Patient mental status rapidly improved after oxygen therapy was started. Review of Systems All systems: reviewed and no additional remarkable complaints except as stated Constitutional Vitals: Vital Signs Temp Pulse Resp BP Pulse Ox 99.3 F H 109 H 20 138/68 95 07/22/20 08:00 07/22/20 08:00 07/22/20 10:00 07/22/20 10:00 07/22/20 10:00 Period Temp Pulse Resp BP Sys/Hernandez Pulse Ox Last 24 Hr 98.2 F-101.4 F 85-115 13-25 123-138/68-86 92-99 Intake and Output 07/21/20 07/22/20 07/22/20 21:59 05:59 13:59 Intake Total 50 1580 150 Output Total 750 1025 525 Balance -700 555 -375 Weight 81.828 kg Intake & Output: Intake & Output 07/21/20 07/22/20 07/22/20 21:59 05:59 13:59 Intake Total 50 1580 150 Output Total 750 1025 525 Balance -700 555 -375 Weight 81.828 kg Intake: IV 50 1100 50 Sodium Chloride 0.9% 1,000 ml @ 1000 75 mls/hr IV .[id number] [facility] Rx#: [id number] Zosyn 3.375 gm In Dextrose 5% 50 100 50 in Water 50 ml @ 100 mls/hr IV Q6H [facility] Rx#:[id number] Oral 480 100 Output: Urine Catheter Amount 750 1025 525 Other: Meal Breakfast Percent of Meal Consumed 25% Feeding Ability Assist with Tray Set Up Urine Appearance Cloudy Cloudy Cloudy Uretheral (Moreno) Cloudy Urine Color Dark Yellow Dark Yellow Bright Yellow Uretheral (Moreno) Bright Yellow Urine Odor Normal Normal Stool Size Moderate Stool Color Brown Pale Stool Consistency Soft Formed Additional findings Additional findings: General - No acute distress Eyes - PERRLA, EOM intact ENT no rhinorrhea, no noticeable or palpable swelling, no redness or rash around throat or on face Neck supple, no JVD, no thyromegaly Respiratory: Lungs - diminshed BS, no use of accessary muscles. Cardiovascular - RRR no m/r/g, GI - Normal bowel sounds, no distended, soft. Extremeties - No edema, cyanosis or clubbing. No CVA tenderness. Penis no erythema, edema or tenderness. Hemo/lymphatic/immune no lymphadenopathy Neurological Alert and oriented x 2, no focal neurological deficits. Psychiatry flat affect OBJ DATA Labs CBC & Chem 7: 07/22/20 04:48 07/22/20 04:48 Labs: Abnormal Lab Results 07/22/20 07/22/20 07/21/20 04:48 04:48 04:56 WBC RBC 3.53 L Hgb 11.2 L Hct 33.7 L Plt Count 118 L MPV 11.5 H Neut % (Auto) 88.5 H Lymph % (Auto) 4.6 L Lymph # (Auto) 0.45 L [place] # (Auto) Absolute Neutrophils 8.70 H Chloride 110 H 110 H Carbon Dioxide 19 L 19 L NT-Pro-B Natriuret Pep Total Protein 5.8 L 5.8 L Albumin 3.0 L 3.1 L Procalcitonin Abs Neutrophil Control 07/21/20 07/20/20 07/20/20 04:56 19:27 12:56 WBC 15.2 H RBC 3.41 L Hgb 10.8 L Hct 32.6 L Plt Count MPV 11.7 H Neut % (Auto) 84.7 H Lymph % (Auto) 6.8 L Lymph # (Auto) 1.03 L [place] # (Auto) 1.24 H Absolute Neutrophils Chloride Carbon Dioxide NT-Pro-B Natriuret Pep 1229.0 H Total Protein Albumin Procalcitonin 5.35 H Abs Neutrophil Control 12.91 H 07/20/20 07/20/20 12:56 12:56 WBC 13.3 H RBC 3.80 L Hgb 12.2 L Hct 36.2 L Plt Count MPV 11.8 H Neut % (Auto) 87.7 H Lymph % (Auto) 2.9 L Lymph # (Auto) 0.39 L [place] # (Auto) 1.18 H Absolute Neutrophils Chloride Carbon Dioxide 19 L NT-Pro-B Natriuret Pep Total Protein Albumin Procalcitonin Abs Neutrophil Control 11.66 H Meds: Medications Acetaminophen (Tylenol) 500 mg PO Q6HP PRN; Protocol PRN Reason: Fever Last Admin: 07/22/20 10:31 Dose: 500 mg Documented by: Atorvastatin Calcium (Lipitor) 20 mg PO QDAY [facility] Last Admin: 07/22/20 09:08 Dose: 20 mg Documented by: Docusate Sodium (Colace) 100 mg PO BID [facility] Last Admin: 07/22/20 09:07 Dose: 100 mg Documented by: Enoxaparin Sodium (Lovenox) 40 mg SQ DAILY [facility] Last Admin: 07/22/20 09:07 Dose: 40 mg Documented by: Finasteride (Proscar) 5 mg PO QDAY [facility] Last Admin: 07/22/20 09:07 Dose: 5 mg Documented by: Piperacillin Sod/Tazobactam (Sod 3.375 gm/ Dextrose) 50 mls @ 100 mls/hr IV Q6H [facility]; Protocol Last Infusion: 07/22/20 08:00 Dose: Infused Documented by: Norepinephrine Bitartrate 8 mg (/ Sodium Chloride) 250 mls @ 18.75 mls/hr IV Q14H PRN; Protocol PRN Reason: TITRATE TO KEEP MAP > 65 Sodium Chloride (Sodium Chloride 0.9%) 1,000 mls @ 100 mls/hr IV .Q10H [facility] Morphine Sulfate (Morphine) 2 mg IV Q6HP PRN PRN Reason: Chest Pain Ondansetron HCl (Zofran) 4 mg IV Q4HP PRN; Protocol PRN Reason: Nausea And Vomiting Oxycodone/Acetaminophen (Percocet 5-325 Mg) 1 tab PO Q6H PRN; Protocol PRN Reason: Per Pain Protocol Sodium Chloride (Saline Flush) 10 ml IV Q8 [facility] Last Admin: 07/22/20 06:44 Dose: Not Given Documented by: Tamsulosin HCl (Flomax) 0.4 mg PO BIDCC [facility] Last Admin: 07/22/20 07:28 Dose: 0.4 mg Documented by: A/P Narrative A/P Narrative: 1. Acute hypoxic respiratory failure ABG showed 7.53/24/58/92.8/20.1 Pulse ox Oxygen therapy, keep oxygen saturation greater than 92% 2. AMS improving/almost resolved Etiology unknown. Could be due to oxygen desaturation, sepsis CT of the head negative for acute change Monitor 3. Sepsis, source of infection unknown, could be due to bacteremia 4. Bacteremia? 2L normal saline was given in the ER continue IV fluid COVID-19 screen negative He was suspected to have bacteremia from false passage Blood culture no growth so far Urine culture pending Zosyn 5. Urinary retention 6. Hx of urethral stricture 7. Uretharal false passage 8. BPH CT chest, abd, pelvis, and thigh no significant pathology. Managed by urologist Dr. Martínez. With a really appreciate it. Moreno catheter was replaced by Dr. Martínez in the ER Hx of false passage x [address] Martínez, -moreno catheter to remain in place for 3 weeks -to see Dr. Martínez in three weeks for cystoscopy and trial of void in clinic -do not remove catheter without discussion with urology 9. 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 CT showed there was some penile gas noted, but suspect this is secondary to false lumen after traumatic Moreno catheter placement today. Continue to watch for signs of Madhu's gangrene with serial penile exams every 2 hours to evaluate for crepitus and erythema. 11. Mechanical ground level fall CK - 125 PT/OT/CM 12. 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
[2020-07-22] MEDS ORDERED: IOPAMIDOL 100 ML BOTTLE IV ONE (11:13)
--- NOTE | 2020-07-22 11:26 | Cat Scan Report ---
History: Decreased level of consciousness and weakness TECHNIQUE: The brain was imaged without contrast at 2.5 mm intervals. Sagittal and coronal reformats were created. The radiation exposure was limited using dose reduction technology. FINDINGS: Postoperative changes are present in the left cerebellum following resection of tumor. There is encephalomalacia at this site and mesh at the craniectomy site. No residual or recurrent tumor is present. Above the tentorium there is atrophy and mild white matter disease. Lateral and third ventricles are mildly enlarged. Ventricular size has remained stable since 07/20/20. There is no transependymal reabsorption of CSF. No acute infarct is detected. There is no hemorrhage or mass effect. No abnormal extra-axial fluid collection has developed. There is mild mucosal thickening along the cabrera of many of the ethmoid air cells bilaterally and minor involvement in the inferior recesses of both frontal sinuses. There is also a tiny air-fluid level in the right side of the sphenoid sinus. The sinusitis has become worse since 07/20/20. The mastoids are clear. IMPRESSION: Mild sinusitis which has progressed Stable postoperative changes in the left cerebellum Atrophy and borderline hydrocephalus, which remain stable Dr. Armstrong was called with the report Interpreted and Authenticated by: Cristino Calderon 07/22/20
--- NOTE | 2020-07-22 11:57 | Cat Scan Report ---
History: Infection, sepsis, evaluate for source TECHNIQUE: The patient was imaged following intravenous but no oral contrast scanning during the portal venous phase from above the diaphragm through the symphysis pubis. Sagittal and coronal reformats were created. Radiation exposure was limited using dose reduction technology. FINDINGS: Mild dependent atelectasis has developed posteriorly in both lower lobes. There are tiny bilateral pleural effusions. These are new finding since 07/20/20. The liver and spleen are normal in size and homogeneous. The gallbladder is normal with no stones or thickening of the wall. The bile ducts are nondilated. There is no evidence of a mass or inflammation in the pancreas. The adrenals and kidneys are normal. There is no kidney stone, hydronephrosis or radiographic evidence of pyelonephritis. The aorta is normal in caliber. There is a large amount calcified plaque in the aorta and iliac arteries. There is a large amount liquefied stool in the colon. A few noninflamed diverticula are present in the distal descending and proximal sigmoid colon. There is some stranding in the peritoneal space in the left side of the pelvis posterior and lateral to the dome of the bladder posterior to the sigmoid colon and lateral to the distal sigmoid. This is seen on axial images 122 through 129. The streakiness was not present on the recent CT done on 07/20/20. There are diverticula in the adjacent sigmoid colon but the colon does not appear to be inflamed. No abscess or free intraperitoneal air are present. The prostate is severely enlarged and lifts the bladder from the floor the pelvis. There is a Albrecht catheter within the bladder. The bladder is decompressed salting in circumferential thickening of the wall. There is also some air within the bladder due to the catheter. There may be small amount of air within the wall of the bladder on the right side. On the prior study there is air in the base of the venous following a traumatic catheter insertion. The air within the penis has resolved and there is no evidence of an abscess at the base of the penis. IMPRESSION: Nonspecific inflammatory changes in the left lower pelvis and sigmoid colon and lateral to the bladder. Patient may have cystitis. There is also suggestion of small bubbles of air in the wall of the bladder. Severely enlarged prostate. This is probably due to benign prostatic hypertrophy. However, prostatitis and prostate cancer also in the differential No intra-abdominal or pelvic abscess Dr. Armstrong was called with the results Interpreted and Authenticated by: Cristino Calderon 07/22/20
[2020-07-22] MEDS: 0.9 % SODIUM CHLORIDE 1,000 ML IV SCH ×2 (12:00→22:56)
[2020-07-23] MEDS: PIPERACILLIN SODIUM/TAZOBACTAM 3.375 GM in DEXTROSE 5% IN WATER 50 ML IV SCH ×3 (00:29→12:17)
[2020-07-23] MEDS: 0.9 % SODIUM CHLORIDE 10 ML SYRINGE IV SCH ×2 (05:53→14:29)
[2020-07-23 06:20] LABS: ALT/SGPT 10 U/L (<40); AST/SGOT 18 U/L (<40); Albumin 2.6 gm/dL (3.2-5.2); Albumin/Globulin Ratio 0.9 (1.0-2.3); Alkaline Phosphatase 52 U/L (39-117); Bilirubin,Total 0.5 mg/dL (0.1-1.0); Blood Urea Nitrogen 16 mg/dL (8-23); Calcium 7.7 mg/dL (8.6-10.4); Carbon Dioxide 20 mmol/L (22-30); Chloride 108 mmol/L (96-108); Globulin 2.8 gm/dL (2.2-3.7); Glomerular Filtration Rate 60; Glucose 97 mg/dL (70-105)
[2020-07-23 07:32] LABS: Basophils # (Auto) 0.02 K/mcL (0.00-0.20); Basophils % (Auto) 0.4 % (0.0-2.0); Eosinophils # (Auto) 0 K/mcL (0.00-0.70); Eosinophils % (Auto) 0 % (0.0-7.0); Hematocrit 32.8 % (41.0-55.0); Hemoglobin 10.6 g/dL (13.5-16.5); Lymphocytes # (Auto) 0.31 K/mcL (1.50-4.80); Lymphocytes % (Auto) 5.7 % (15.0-49.0); Mean Cell Volume 97.3 fL (80.0-100.0); Mean Corpuscular HGB Conc 32.3 g/dL (31.0-36.0); Mean Platelet Volume 11.8 fL (7.4-10.4); Monocytes # (Auto) 0.38 K/mcL (0.10-0.90); Neutrophils % (Auto) 86.9 % (38.0-78.0); Platelet Count 108 K/mcL (140-440); RBC 3.37 M/mcL (4.50-5.90); Red Cell Distribution Width 13.2 % (11.5-14.5); WBC 5.5 K/mcL (4.5-11.0)
[2020-07-23] MEDS: TAMSULOSIN 0.4 MG CAPSULE PO SCH ×2 (07:39→17:30)
[2020-07-23] MEDS: 0.9 % SODIUM CHLORIDE 1,000 ML IV SCH ×3 (07:39→16:38)
[2020-07-23] MEDS: ENOXAPARIN 40 MG/0.4 ML SYRINGE SQ SCH (09:10)
[2020-07-23] MEDS: DOCUSATE SODIUM 100 MG CAPSULE PO SCH (09:10)
[2020-07-23] MEDS: ATORVASTATIN 20 MG TABLET PO SCH (09:10)
[2020-07-23] MEDS: FINASTERIDE 5 MG TABLET PO SCH (09:10)
--- NOTE | 2020-07-23 13:46 | XRay Report ---
HISTORY: Former smoker, weakness, FINDINGS: Small linear scar is present laterally in the left lower lobe. The lungs are otherwise clear and normally expanded. There is no evidence of emphysema or bronchial wall thickening. Heart size is normal. There has been prior coronary bypass surgery. No congestive heart failure is present. Comparison with the recent CT done on 07/20/20 shows no change. IMPRESSION: No acute abnormality Interpreted and Authenticated by: Cristino Calderon 07/23/20
--- NOTE | 2020-07-23 15:28 | Discharge Summary ---
Discharge Provider Provider Patient information: Note initiated : 07/23/20 at 3:12 pm Service Date, if different from initiated Date: [] Patient: Gregg Davis 84 y/o M admitted on 07/20/20 for weakness. Chief Complaint: [] Date of admission: 07/20/20 19:31 Discharge date: 07/23/20 Primary care physician: Cristino Leal Consults: 07/20/20 Consult to Physician [CONS] Stat Comment: Consulting Provider: Christiano Douglas Reason For Exam: Physician to Consult Consult to Physician [CONS] Stat Comment: Consulting Provider: Yolanda Armstrong Reason For Exam: Physician to Consult 07/20/20 18:49 Consult to Physician [CONS] Routine Comment: Consulting Provider: Brandon Martínez Reason For Exam: Physician to Consult Discharge Meds Discharge Medications Home Medications atorvastatin 20 mg tablet 20 mg PO QDAY 09/21/19 [History Confirmed 07/20/20 Last Taken Unknown] carvedilol 3.125 mg tablet 6.25 mg PO QDAY tab 09/21/19 [History Confirmed 07/20/20 Last Taken Unknown] tamsulosin 0.4 mg capsule 0.4 mg PO BIDWMEAL #60 cap 07/05/20 [Rx Confirmed 07/20/20 Last Taken Unknown] finasteride 5 mg tablet 5 mg PO QDAY #30 tab 07/19/20 [Rx Confirmed 07/20/20 Last Taken Unknown] ciprofloxacin HCl [Cipro] 250 mg PO Q12H #14 tab 07/23/20 [Rx Last Taken Unknown] COURSE Hospital Course Hospital course: 1. Acute hypoxic respiratory failure He is now on room air with good oxygen saturation Home oxygen assessment was performed by RT -93% on room air when he is walking. 2. AMS Resolved per CT of the head negative for acute change 3. Sepsis, source of infection unknown, could be due to bacteremia, resolved 4. Bacteremia? 2L normal saline was given in the ER continue IV fluid COVID-19 screen negative He was suspected to have bacteremia from false passage Blood culture no growth so far Urine culture and catheter tip culture - Pseudomonas, sensitive to all antibiotics tested We will discontinue Zosyn and discharged him on Cipro for 7 days. 5. Urinary retention 6. Hx of urethral stricture 7. Uretharal false passage 8. BPH CT chest, abd, pelvis, and thigh no significant pathology. Moreno catheter was replaced by Dr. Martínez in the ER Hx of false passage x [address] Martínez, -moreno catheter to remain in place for 3 weeks -to see Dr. Martínez in three weeks for cystoscopy and trial of void in clinic -do not remove catheter without discussion with urology 9. 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 CT showed there was some penile gas noted, but suspect this is secondary to false lumen after traumatic Moreno catheter placement today. Dr. Martínez felt the air could result from cath insertion and not from Madhu's gangrene. 11. Mechanical ground level fall CK - 125 PT/OT Mr. Davis is a 84 year old M with a past medical history of BPH, CAD, and urethral stricture who was brought to the ER due to fall at home. This morning patient was found to be on the ground by family. As per patient, his legs just "gave out.". He did not lose consciousness or hit his head. He also has nausea and chills today. His grandson found him to have mild confusion today. He has a urethral stricture, for which Moreno catheter was placed on 07/07/2020 by his urologist via a urethroscope. He was discharged to home with oral Keflex after 1 dose of IV ceftriaxone was given. Yesterday he went to see NADIA Hess who removed his Moreno catheter. In the ER, Moreno catheter was not able to be inserted. Urologist Dr. Martínez successfully placed a moreno cath. CT head was negative for acute change. CT chest abdomen pelvis and upper thighs no significant pathology. But it did show There was some penile gas noted, but suspect this is secondary to false lumen after traumatic Moreno catheter placement today. When I saw this patient in the ER, other than the symptoms mentioned above, he denied headache, dizziness, chest pain, abdominal pain, shortness of breath, or dysuria. 09/20 Patient feels much better. Mental status improving -answer questions appropriately. Patient has mild fever this evening White blood cells of 15.2 Hemoglobin 10.8 COVID-19 negative Urine culture pending 07/22 Pt is more lethargic today. Does not follow commends. Pt still has fever. Urine culture showed GNB. Sensitivity pending Accucheck blood glucose 100 CT of head -no acute change ABG, Lactic acid, procalcitonin, blood culture CT abd/pelvis to r/o intraabd/pel infection/abscess -no abscess pulse ox oxygen ABG showed 7.53/24/58/92.8/20.1. Oxygen therapy was started. Patient mental status rapidly improved after oxygen therapy was started. 07/23 Today patient mentation significantly improved and has come back to his baseline. He does not have any complaints and wants to go home. Vital signs are stable. He is now on room air with good saturation. No home oxygen needs by RT. He will be discharged to home with home health. Continue PT OT. He needs to follow with PCP and urologist. Hemoglobin 10.6 and platelets 108. Repeat CBC in 3 days. Continue Cipro p.o. for 7 days. He will be discharged on Moreno catheter. Call PCP for medical issues. Discharge diagnosis: AMS, Urinary retention Time Spent with Patient Time attestation: Total time spent providing and/or coordinating discharge services: EXAM Constitutional Vitals: Temp Pulse Resp BP Pulse Ox 98.8 F 88 22 138/73 98 07/23/20 12:00 07/23/20 14:35 07/23/20 14:35 07/23/20 14:23 07/23/20 14:35 Additional findings Additional findings: General - No acute distress Eyes - PERRLA, EOM intact ENT no rhinorrhea, no noticeable or palpable swelling, no redness or rash around throat or on face Neck supple, no JVD, no thyromegaly Respiratory: Lungs - diminshed BS, no use of accessary muscles. Cardiovascular - RRR no m/r/g, GI - Normal bowel sounds, no distended, soft. Extremeties - No edema, cyanosis or clubbing. No CVA tenderness. Penis no erythema, edema or tenderness. Moreno catheter in place. Hemo/lymphatic/immune no lymphadenopathy Neurological Alert and oriented x 2, no focal neurological deficits. Psychiatry flat affect Discharge Data Data Completed and Pending Labs on day of discharge: Labs from last 24 hours 07/23/20 07/23/20 04:00 04:00 WBC 5.5 RBC 3.37 L Hgb 10.6 L Hct 32.8 L MCV 97.3 MCH 31.5 MCHC 32.3 RDW 13.2 Plt Count 108 L MPV 11.8 H Neut % (Auto) 86.9 H Lymph % (Auto) 5.7 L [place] % (Auto) 7.0 Eos % (Auto) 0 Baso % (Auto) 0.4 Lymph # (Auto) 0.31 L [place] # (Auto) 0.38 Eos # (Auto) 0 Baso # (Auto) 0.02 Absolute Neutrophils 4.74 Sodium 138 Potassium 3.6 Chloride 108 Carbon Dioxide 20 L Anion Gap 10.0 BUN 16 Creatinine 1.1 GFR Calculation 60 Glucose 97 Calcium 7.7 L Total Bilirubin 0.5 AST 18 ALT 10 Alkaline Phosphatase 52 Total Protein 5.4 L Albumin 2.6 L Globulin 2.8 Albumin/Globulin Ratio 0.9 L Preliminary micro results at discharge 07/20/20 13:00 Blood Culture - Preliminary Blood 07/20/20 12:56 Blood Culture - Preliminary Blood 07/22/20 12:00 Blood Culture - Preliminary Blood 07/22/20 11:43 Blood Culture - Preliminary Blood 07/20/20 13:50 Urine Culture - Preliminary Urine - Moreno Pseudomonas species Discharge Plan Patient/Caregiver Discharge Instructions Activity: increase activity as tolerated Diet: Regular Diet Activity Restrictions/Additional Instructions: Continue PT OT. Follow with PCP in 3 days and urologist in 3 weeks. Repeat CBC and CMP in 3 days. Continue Cipro p.o. for 7 days. Call PCP for medical issues. Prescriptions: New ciprofloxacin HCl [Cipro] 250 mg tablet 250 mg PO Q12H Qty: 14 RF: 0 Continued carvedilol 3.125 mg tablet 6.25 mg PO QDAY RF: 0 atorvastatin 20 mg tablet 20 mg PO QDAY RF: 0 tamsulosin 0.4 mg capsule 0.4 mg PO BIDWMEAL Qty: 60 RF: 6 finasteride 5 mg tablet 5 mg PO QDAY Qty: 30 RF: 3 Other Ambulatory Orders: Complete Blood Count (Routine) Timeframe: 3 Days Facility: [facility] - Location: Laboratory Ordered By: Yolanda Armstrong Comprehensive Metabolic Panel (Routine) Timeframe: 3 Days Facility: [facility] - Location: Laboratory Ordered By: Yolanda Armstrong OT Discharge Order (Routine) Location: None Selected Ordered By: Yolanda Armstrong Physical Therapy at Discharge - General (Routine) Location: None Selected Ordered By: Yolanda Armstrong Follow Up Plan Follow up with: Cristino Leal ARNP [Primary Care Provider] - (in 3 days. ) Brandon Martínez MD [Physician] - (in 3 weeks or sooner. ) Patient Disposition: Home Health Service Prognosis: Fair Discharge Orders: Discharge Order (Routine); Ordered 07/23/20 Ordered By: Yolanda Armstrong QUALITY VTE Deep Vein Thrombosis/Pulmonary Embolism Present on Admission: No
--- NOTE | 2020-07-25 11:05 | Internal Medicine Consult Note ---
HPI Data of Consult Consult date: 07/20/20 Primary Care Provider: Cristino Leal Consult Narrative Patient Information: Note initiated : 07/20/20 at 2:57 pm Service Date, if different from initiated Date: [] Patient: Gregg Davis 84 y/o M admitted on today for rigors and confusion at home. he was seen in the clinic yesterday by the [employer] and was doing fine. Plan was to keep his catheter longer and have him follow up for Cysto with trial of void given his two previous urethral trauma in the ER with false passage recently. He was instructed again that no one was to manipulate or remove/replace his catheter other than urology and given a card saying so. When presented to the ER was febrile. They removed the catheter and attempted to replace another. The balloon was blown up and no urine return. Urology called urgently again. Patient reports he had sudden onset symptoms this am. Fevers, chills, confusion. no cough. no change in bowels. no abdominal pain. no change in urine. cc:: CC: Review of Systems ROS unobtainable: due to mental status (some confusion ) Constitutional Constitutional: Present chills, fatigue, fever(s) and malaise Cardiovascular Cardiovascular: Absent chest pain, chest pain at rest and chest pain with activity Respiratory Respiratory: Absent cough, dyspnea and wheezing Gastrointestinal Gastrointestinal: Absent abdominal pain, nausea and vomiting Genitourinary Genitourinary: as per HPI Neurological Neurological: Present as per HPI and confusion Psychiatric Psychiatric: Present as per HPI and confusion PFSH PFSH All Active Problems Cloudy urine (Acute) Urinary retention (Acute) Urethral false passage (Acute) Hyperlipidemia (Chronic) Anxiety (Chronic) 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) CAD (coronary artery disease) (Chronic) Dermatophytosis (Chronic) Sensorineural hearing loss (Chronic) Auditory hallucinations (Chronic) Cerebral meningioma (Chronic) Dysplastic nevus of skin (Chronic) Abnormal voice (Chronic) Actinic keratosis (Chronic) 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) Elevated PSA (Chronic) Urinary retention (Chronic) Medical History Abnormal voice (Chronic) Actinic keratosis (Chronic) Anxiety (Chronic) 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) CAD (coronary artery disease) (Chronic) Cerebral meningioma (Chronic) Dermatophytosis (Chronic) Dysplastic nevus of skin (Chronic) Elevated PSA (Chronic) Hyperlipidemia (Chronic) Osteoarthritis of multiple joints (Chronic) Sensorineural hearing loss (Chronic) Sensory disorder of smell (Chronic) Urinary retention (Chronic) Surgical History 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) Family History Father Lung cancer Social History smoking status: Former smoker alcohol intake frequency: does not drink MEDS/ALLERGIES Home Medications and Allergies Home Medications Medication Instructions Recorded Confirmed Type atorvastatin 20 mg tablet 20 mg PO QDAY 09/21/19 07/20/20 History carvedilol 3.125 mg tablet 6.25 mg PO QDAY tab 09/21/19 07/20/20 History tamsulosin 0.4 mg capsule 0.4 mg PO BIDWMEAL #60 cap 07/05/20 07/20/20 Rx finasteride 5 mg tablet 5 mg PO QDAY #30 tab 07/19/20 07/20/20 Rx Allergies Allergy/AdvReac Type Severity Reaction Status Date / Time No Known Drug Allergies Allergy Verified 07/19/20 13:49 EXAM Constitutional Vitals: Temp Pulse Resp BP Pulse Ox 98.3 F 85 17 115/67 91 07/07/20 02:16 07/07/20 05:31 07/07/20 02:16 07/07/20 05:31 07/07/20 05:31 General appearance: cooperative and no acute distress Head Head exam: Present atraumatic, normal inspection and normocephalic Eye Eye exam: Present normal appearance; Absent conjunctival injection and scleral icterus Respiratory Respiratory exam: Absent rhonchi, stridor and wheezes GI/Abdominal GI/Abdominal exam: Present soft; Absent distended, firm, rebound, rigid and tenderness exam: Present circumcision, normal inspection and urethral discharge (moreno with excessivre length out uretha and blood in catheter) Psychiatric Psychiatric exam: Present normal affect and normal mood; Absent agitated Skin Skin exam: Present pallor A/P Narrative A/P Narrative: 1) urethral trauma -this is the patients third false passage event this month -last moreno was in for two weeks and this time we were able to pass a 16 cymraes coudee without need for cystoscopy -moreno catheter to REMAIN IN PLACE FOR THREE WEEKS -to see Dr. Martínez in three weeks for cystoscopy and trial of void in clinic -DO NOT remove catheter without discussion with urology 2) Sepsis: -sudden on set symptoms this am -his urine looks clear/not infected but expect culture to be positive as he should have colonization of the urine with bacteria as is normal -full work up by ED ongoing -CT scan to extend to mid thigh to ensure no perineal process/abscess given u rethral issues this month Time Spent With Patient Time: Total time spent is greater than 50% in coordination of care (as docu mented) at patient's floor/unit and/or counseling patient: Total time spent with greater than 50% in coordination of care (as documented) at patient's floor/unit and/or counseling patient:: 25 - 35 minutes PROC Catheter Insertion (Urinary) Date of Procedure: 07/20/20 Prophylactic antibiotics given: No Bladder Scan/Ultrasound used before catheterization: No Preparation: Povidone-Iodine Type of catheter inserted: 2 way and coude tip (16) Catheter Latvian Size: 16 Catheter Balloon Size (mLs): 10 Topical anesthesia used: Yes Results: successfully catheterized-immediate flow and urine sent for UA/ C&S Patient tolerated procedure: well Complications: bloody urine Additional comments: misplaced moreno removed. we were able to pass a 16 cymraes coudee into the bladder.
--- NOTE | 2020-07-25 11:06 | Internal Med Progress Note ---
SUBJECTIVE Subjective Patient information: Note initiated : 07/22/20 at 4:48 pm Service Date, if different from initiated Date: [] Patient: Gregg Davis 84 y/o M admitted on for Urinary Retention. He is currently doing well but prior to seeing him he was obtunded. ABG revealed increased Co 2 and he was placed on O2 and now improved. He reports no issues with the catheter. no pain, no discharge, no penile or scrotal swelling. his pernineal checks have revealed no changes. Catheter draining well. Chief Complaint: [] Constitutional Vitals: Vital Signs Temp Pulse Resp BP Pulse Ox 98.3 F 85 17 115/67 91 07/07/20 02:16 07/07/20 05:31 07/07/20 02:16 07/07/20 05:31 07/07/20 05:31 General appearance: cooperative and no acute distress Respiratory Respiratory exam: Absent accessory muscle use, respiratory distress, stridor and wheezes GI/Abdominal GI/Abdominal exam: Present soft; Absent distended, firm, guarding, rebound and rigid exam: Present normal inspection and urethral discharge (minimal ); Absent scrotal swelling and testicular tenderness External exam: Present normal external exam; Absent ecchymosis, erythema, lacerations, lesions and swelling Additional comments: no signs infection Neurological Exam Neurological exam: Present alert and oriented X3 A/P Assessment and plan (1) Urethral false passage: Status: Acute Narrative A/P Narrative: -ok to d/c pernineal checks, he is doing well from a urologic standpoint -catheter to remain until seen by urology -follow up 3 weeks for in office cystoscopy and trial of void Time Spent With Patient Time: Total time spent is greater than 50% in coordination of care (as documented) at patient's floor/unit and/or counseling patient: Total time spent with greater than 50% in coordination of care (as documented) at patient's floor/unit and/or counseling patient:: less than 15 minutes
== END 2020-07-23 17:34 | disposition home health service (06) | DRG 871 ==
LOC: ED 12:11 → ICU 19:31
PROVIDERS: ADMIT Internal Medicine; ATTEND Internal Medicine

== ENCOUNTER 2020-09-15 04:46 | Inpatient (IN) ==
[2020-09-06 14:34] LABS: Basophils # (Auto) 0.05 K/mcL (0.00-0.20); Basophils % (Auto) 1.4 % (0.0-2.0); Eosinophils # (Auto) 0.15 K/mcL (0.00-0.70); Eosinophils % (Auto) 4.1 % (0.0-7.0); Hematocrit 39.4 % (41.0-55.0); Hemoglobin 12.9 g/dL (13.5-16.5); Lymphocytes # (Auto) 0.95 K/mcL (1.50-4.80); Lymphocytes % (Auto) 26.2 % (15.0-49.0); Mean Cell Volume 95.2 fL (80.0-100.0); Mean Corpuscular HGB Conc 32.7 g/dL (31.0-36.0); Mean Platelet Volume 11.8 fL (7.4-10.4); Neutrophils % (Auto) 57.3 % (38.0-78.0); Platelet Count 148 K/mcL (140-440); RBC 4.14 M/mcL (4.50-5.90); Red Cell Distribution Width 12.8 % (11.5-14.5); WBC 3.6 K/mcL (4.5-11.0)
[2020-09-06 15:22] LABS: Blood Urea Nitrogen 22 mg/dL (8-23); Calcium 9.3 mg/dL (8.6-10.4); Carbon Dioxide 26 mmol/L (22-30); Chloride 104 mmol/L (96-108); Glomerular Filtration Rate 67; Glucose 83 mg/dL (70-105)
--- NOTE | 2020-09-06 18:24 | XRay Report ---
HISTORY: Preop for transurethral resection of the prostate FINDINGS: The lungs are clear except for a thin linear band of scar tissue at the left costophrenic sulcus. There is no pneumonia, mass or congestive heart failure. The heart size is normal and there has been prior coronary bypass surgery. There is an old moderate wedge compression fracture at T8. No lytic or blastic lesion are seen. Comparison with the prior exam from 07/23/20 shows no significant change. IMPRESSION: No acute abnormality Interpreted and Authenticated by: Cristino Calderon 09/06/20
[2020-09-15] MEDS ORDERED: SCOPOLAMINE 1 PATCH PATCH TOPICAL PRN (05:00)
[2020-09-15 06:36] LABS: Appearance,Urine CLEAR (Clear); Bacteria,Urine MOD /hpf (0); Bilirubin,Urine Negative (Negative); Color,Urine YELLOW; Culture Indicated,Urine yes; Glucose,Urine (UA) Negative (Negative); Ketones,Urine Negative (Negative); Leukocyte Esterase,Urine 75 /ug (Negative); Mucus,Urine FEW /hpf; Nitrate,Urine POS (Negative); Protein,Urine Negative (Negative); Specific Gravity,Urine 1.016 (1.000-1.035); Urine Blood 0.03 mg/dL (Negative); Urine RBC 1 /hpf (0-1); Urine Squamous Epithelial Cell 0 /hpf (0-4); Urine Transitional Epi Cells < 1 /hpf (0-2); Urine WBC 38 /hpf (0-4); Urobilinogen,Urine Negative
--- NOTE | 2020-09-15 08:01 | Event Note ---
Event Note Event Note: Culture results not entered yet. Called lab and they have the results and were able to read them to us BUT stated the final plates had to be found before they would enter the results into the EMR. Given his large gland and indwelling catheter, risk bacteremia is present. We do need the the final culture and sensitivity resulted in the EMR prior to starting the procedure. Lab will enter such urgently.
[2020-09-15] MEDS ORDERED: cefTRIAXone 1 GM VIAL IV ONE (08:17)
[2020-09-15] MEDS ORDERED: VANCOMYCIN 1,000 MG in 0.9 % SODIUM CHLORIDE 250 ML IV SCH (08:30)
[2020-09-15] MEDS ORDERED: EPINEPHrine 1 MG/10 ML (1:10,000) SYRINGE IV ONE (08:30)
[2020-09-15] MEDS ORDERED: LIDOCAINE HCL/PF 100 MG/5 ML SYRINGE IV ONE (08:30)
[2020-09-15] MEDS ORDERED: fentaNYL 100 MCG/2 ML VIAL IV ONE (08:30)
[2020-09-15] MEDS ORDERED: ONDANSETRON 4 MG/2 ML VIAL ONE (08:30)
[2020-09-15] MEDS ORDERED: FAMOTIDINE/PF 20 MG/2 ML VIAL IV ONE (08:30)
[2020-09-15] MEDS ORDERED: HYDROmorphone 1 MG/ML SYRINGE ONE (08:30)
[2020-09-15] MEDS ORDERED: VASOPRESSIN 20 UNIT/ML VIAL ONE (08:30)
[2020-09-15] MEDS ORDERED: KETAMINE 100 MG/ML ML ONE (08:30)
[2020-09-15] MEDS ORDERED: PHENYLEPHRINE 10 MG/ML VIAL ONE (08:30)
[2020-09-15] MEDS ORDERED: GLYCOPYRROLATE 0.2 MG/ML VIAL IV ONE (08:30)
[2020-09-15] MEDS ORDERED: DEXAMETHASONE 10 MG/ML VIAL ONE (08:30)
[2020-09-15] MEDS ORDERED: PROPOFOL 200 MG/20 ML VIAL IV ONE (08:30)
[2020-09-15] MEDS ORDERED: IPRATROPIUM/ALBUTEROL 3 ML AMPUL.NEB NEB PRN (09:52)
[2020-09-15] MEDS ORDERED: ACETAMINOPHEN 1,000 MG/100 ML BOTTLE IV ONE (09:52)
[2020-09-15] MEDS ORDERED: FLUMAZENIL 0.1 MG/ML ML IV PRN (09:52)
[2020-09-15] MEDS ORDERED: fentaNYL 100 MCG/2 ML VIAL IV PRN (09:52)
[2020-09-15] MEDS ORDERED: NALOXONE HCL 0.4 MG/ML VIAL IV PRN (09:52)
[2020-09-15] MEDS ORDERED: BENZOCAINE/MENTHOL 1 LOZENGE PO PRN (09:52)
[2020-09-15] MEDS ORDERED: LACTATED RINGERS 250 ML IV PRN (09:52)
[2020-09-15] MEDS ORDERED: METHOCARBAMOL 1,000 MG/10 ML VIAL IV PRN (09:52)
[2020-09-15] MEDS ORDERED: LACTATED RINGERS 1,000 ML IV SCH (10:00)
[2020-09-15] MEDS ORDERED: OPIUM/BELLADONNA ALKALOIDS 60 MG SUPP.RECT PR ONE (10:15)
[2020-09-15] MEDS ORDERED: ONDANSETRON 4 MG/2 ML VIAL IV PRN (10:29)
[2020-09-15] MEDS ORDERED: IBUPROFEN 600 MG TABLET PO PRN (10:29)
[2020-09-15] MEDS ORDERED: MAGNESIUM HYDROXIDE 30 ML ORAL.SUSP PO PRN (10:29)
[2020-09-15] MEDS ORDERED: morphine 4 MG/ML VIAL IV PRN (10:29)
[2020-09-15] MEDS ORDERED: MAG HYDROX/AL HYDROX/SIMETH 30 ML ORAL.SUSP PO PRN (10:29)
[2020-09-15] MEDS ORDERED: ONDANSETRON 4 MG ODT TABLET SL PRN (10:29)
[2020-09-15] MEDS ORDERED: ACETAMINOPHEN 325 MG TABLET PO PRN (10:29)
[2020-09-15] MEDS ORDERED: HYDROcodone/APAP 5/325MG TABLET PO PRN (10:29)
[2020-09-15] MEDS ORDERED: BISACODYL 10 MG SUPP.RECT PR PRN (10:29)
--- NOTE | 2020-09-15 10:29 | Brief Operative Note ---
Brief Operative Note Date of procedure: 09/15/20 Pre-op diagnosis: urinary retention and BPH Post-op diagnosis: same Procedure: bipolar transurethral resection prostate Grafts/Implants: Yes ([address] moreno on CBI) Anesthesia: GETA Findings: large coapting lateral lobes Complications: none Surgeon: Brandon Martínez Estimated blood loss (cc): 100 Specimens Removed/Pathology: other (prostate ) Condition: stable Disposition: PACU
[2020-09-15] MEDS ORDERED: cefTRIAXone 1 GM in DEXTROSE 5% IN WATER 50 ML IV SCH (10:30)
[2020-09-15] MEDS ORDERED: ceFAZolin 2 GM in DEXTROSE 5% IN WATER 50 ML IV SCH (11:30)
[2020-09-15] MEDS: OPIUM/BELLADONNA ALKALOIDS 60 MG SUPP.RECT PR SCH ×3 (13:38→22:58)
[2020-09-15] MEDS: 0.9 % SODIUM CHLORIDE 10 ML SYRINGE IV SCH ×2 (20:21→20:31)
[2020-09-15] MEDS: FAMOTIDINE 20 MG TABLET PO SCH (20:31)
[2020-09-15] MEDS: DOCUSATE SODIUM 100 MG CAPSULE PO SCH (20:31)
[2020-09-15] MEDS ORDERED: SENNOSIDES 1 TABLET PO SCH (21:00)
[2020-09-16] MEDS: OPIUM/BELLADONNA ALKALOIDS 60 MG SUPP.RECT PR SCH (07:31)
[2020-09-16] MEDS: DOCUSATE SODIUM 100 MG CAPSULE PO SCH (08:57)
[2020-09-16] MEDS: FAMOTIDINE 20 MG TABLET PO SCH ×2 (08:57→09:06)
[2020-09-16] MEDS: 0.9 % SODIUM CHLORIDE 10 ML SYRINGE IV SCH (08:59)
[2020-09-16] MEDS ORDERED: cefTRIAXone 1 GM VIAL IV SCH (09:00)
--- NOTE | 2020-09-16 18:43 | Operative Note ---
Operative Note Operative Note: Date of procedure: 09/15/20 Pre-op diagnosis: urinary retention and BPH Post-op diagnosis: same Procedure: bipolar transurethral resection prostate Grafts/Implants: Yes ([address] moreno on CBI) Anesthesia: GETA Findings: large coapting lateral lobes Complications: none Surgeon: Brandon Martínez Estimated blood loss (cc): 100 Specimens Removed/Pathology: other (prostate ) Condition: stable Disposition: PACU Informed consent was obtained. Pre - Operative antibiotics were given. Patient was taken to the operative suite and placed on the table in the supine position. Adequate anesthesia was initiated and then patient was placed on the dorsal lithotomy position and prepped and draped in the usual sterile fashion. We began the procedure with the visual obturator and the resectoscope which was guided into the urethra and bladder. The visual obturator was then exchanged for the resection obturator and loop. The bladder was within normal limits other than mild trabeculation. each ureteral orifice was visualized. there was a mild circumferential median lobe but mainly, significant coaptation of the large and long lateral lobes. The bladder neck and the verumontanum were located and marked anatomically and we began a resection sequentially of each large lateral lobe until the prostatic fossa was widely patent. We did resect some of the median lobe to bring it more flush with the bladder trigone. All the chips were removed. Hemostasis was confirmed. The ureteral orifices and the verumontanum were seen to be intact. 24 Slovak three-way Moreno catheter was put into place and continuous bladder irrigation was started. A belladonna opiate suppository was given. Patient tolerated the procedure well and went to recovery room in excellent condition.
--- NOTE | 2020-09-16 18:54 | Internal Med Progress Note ---
SUBJECTIVE Subjective Patient information: Note initiated : 09/16/20 at 6:50 pm Service Date, if different from initiated Date: [] 1230 pm Patient: Gregg Davis 84 y/o M admitted on 09/15/20 for Bipolar Transurethral Resection Prostate. Patient did well overnight. CBI remained pink tinged on slow CBI. TUrned down this morning to a very slow drip and remains dark pink. no clots, no pain, tolerating diet. No fevers, no chills, no nausea, no emesis, no leakage around catheter, no flank pain Chief Complaint: [] Constitutional Vitals: Vital Signs Temp Pulse Resp BP Pulse Ox 98.4 F 92 H 22 140/72 95 09/16/20 07:21 09/16/20 12:00 09/16/20 12:00 09/16/20 12:00 09/16/20 12:00 Period Temp Pulse Resp BP Sys/Hernandez Pulse Ox Last 24 Hr 97.9 F-98.4 F 78-92 18-22 120-140/63-72 95-98 Intake and Output 09/16/20 09/16/20 09/16/20 05:59 13:59 21:59 Intake Total 9600 6480 Output Total 73542 6425 Balance -575 55 Intake & Output: Intake & Output 09/16/20 09/16/20 09/16/20 05:59 13:59 21:59 Intake Total 9600 6480 Output Total 69553 6425 Balance -575 55 Intake: Oral 600 480 CBI Fluid 9000 6000 Output: CBI Fluid 17491 6425 Other: Meal Breakfast Percent of Meal Consumed 100% Feeding Ability Independent Urine Appearance Clear Hematuria 3-way Urethral Hematuria Urine Color [place] Blood Tinged 3-way Urethral [place] Net CBI 1175 200 General appearance: cooperative and no acute distress Eye Eye exam: Absent conjunctival injection, periorbital swelling and scleral icterus Respiratory Respiratory exam: Absent respiratory distress, stridor and wheezes GI/Abdominal GI/Abdominal exam: Present soft; Absent distended, firm, guarding, mass, rebound, rigid and tenderness exam: Present circumcision and normal inspection; Absent scrotal swelling, testicular tenderness and urethral discharge Additional comments: catheter in good position, well secured, pink tinged urine in tubing Neurological Exam Neurological exam: Present alert and oriented X3 Additional comments: hard of hearing Psychiatric Psychiatric exam: Present normal affect; Absent agitated and anxious OBJ DATA Labs CBC & Chem 7: 09/06/20 11:27 09/06/20 11:27 Labs: Abnormal Lab Results 09/15/20 05:52 Urine Nitrate Pos A Ur Leukocyte Esterase 75 A Urine WBC 38 H Urine Bacteria Mod A Urine Mucus Few A A/P Narrative A/P Narrative: POD#1 TURP -doing well and now urine pink tinged off CBI -education given on leg and night bag and leg bag applied and connected with laundry operator tubing to mid calf -home with catheter and bactrim (given his previous positive culture) -follow up 1 week for catheter removal in the office and trial of void Time Spent With Patient Time: Total time spent is greater than 50% in coordination of care (as documented) at patient's floor/unit and/or counseling patient:
--- NOTE | 2020-09-21 16:39 | Surgical Pathology Report ---
Histology Microscopic Diagnosis Specimen A- PROSTATE, TRANSURETHRAL RESECTION: -- PROSTATIC TISSUE WITH STROMAL HYPERTROPHY, GLANDULAR CYSTIC ATROPHY AND CHRONIC INFLAMMATION. -- CYSTITIS GLANDULARIS INVOLVING UROTHELIUM. -- NO MALIGNANCY IDENTIFIED. (EBD:sln) Procedural Impression Benign prostatic hypertrophy with urine retention. Gross Description Received in formalin labeled prostate tissue, are 20 grams of pink stoddard to basurto-stoddard strips of tissue and clot-like material in aggregate measuring 7.7 x 8.1 x 1.5 cm. Beauty Advisor portions submitted in six cassettes. (K[facility]:sln) Electronically Signed Carole Sanchez MD, FCAP Electronically Signed 09/16/2020 3:27 PM
== END 2020-09-16 14:15 | disposition home or self-care (01) | DRG 714 ==
LOC: MEDSUR 04:46 → EDSTATUS 07:30
PROVIDERS: ADMIT Urology; ATTEND Urology